=== PATIENT | female | born 1985 | race Caucasian/White ===

== ENCOUNTER 2016-06-12 16:59 | Inpatient (IN) | payer OTHER ==
[~2016-06-12 16:59] MED LIST: GLUCOPHAGE500 M3 PO; MINASTRIN 24 F1 EAC1 PO; NATURE THROI PO; PRENATAL VITAM1 EAC8 PO; PROBIOTIC1 EA10 PO; PROGESTERONE200 MG PO; VITAMIN C1000 M1 PO; VITAMIN D35000 UNI3 PO; ZYRTEC10 M4 PO
[2016-06-12 18:18] LABS: BASO % 0.1 % (0-2); EOS % 3.2 % (0-7); EOSINOPHIL ABSOLUTE COUNT 0.3 tho/cmm (0.0-0.7); HCT-HEMATOCRIT 33.7 % (34.0-49.0); HGB-HEMOGLOBIN 11.2 gm/dl (12.0-15.5); IMMATURE GRANULOCYTES ABSOLUTE 0.05 tho/cmm (0-0.03); IMMATURE GRANULOCYTES PERCENT 0.6 % (0-0.3); LYMPH % 16.2 % (20-45); LYMPH ABSOLUTE COUNT 1.4 tho/cmm (0.8-4.5); MCH (MEAN CORPUSCULAR HGB) 30.9 pg (28.0-32.0); MCHC MEAN CORPUSCULAR HGB CONC 33.2 % (32.0-36.0); MCV (MEAN CELL VOLUME) 92.8 fl (82.0-96.0); MEAN PLATELET VOLUME 9.6 cmc (9.4-12.4); MONO % 7.9 % (0-12); MONOCYTE ABSOLUTE COUNT 0.7 tho/cmm (0.0-1.2); NEUTROPHIL ABSOLUTE COUNT 6.2 tho/cmm (1.6-8.0); NEUTROPHIL-AUTOMATED 6.2 tho/cmm (1.6-8.0); PLATELET COUNT 218 tho/cmm (150-450); RED BLOOD COUNT 3.63 mil/cmm (4.00-5.20); RED CELL DISTRIBUTION WIDTH 12.8 % (12.4-16.4); WHITE BLOOD COUNT 8.6 tho/cmm (4.0-10.0)
[2016-06-12 18:38] LABS: ALB/GLOB RATIO 0.5 (0.8-2.0); ALBUMIN 2.2 g/dl (3.5-5.0); ALKALINE PHOSPHATASE 104 U/L (33-138); ALT/SGPT 20 U/L (12-78); BLOOD UREA NITROGEN 10 mg/dl (6-24); CALCIUM 8.2 mg/dl (8.5-10.5); CARBON DIOXIDE-VENOUS 24 mmol/L (22-32); CHLORIDE 107 mmol/l (96-110); CREATININE 0.57 mg/dl (0.50-1.10); GLUCOSE 111 mg/dL (70-110); SODIUM 141 mmol/L (135-145); eGFR VALUE FOR BLACK >90 mL/Min
[2016-06-12 18:45] LABS: ANION GAP 14 mmol/L (0-20); AST/SGOT 24 U/L (10-40); BILIRUBIN,TOTAL <0.1 mg/dl (0-1.5); POTASSIUM 3.9 mmol/L (3.7-5.1)
[2016-06-12] MEDS ORDERED: CLARITIN10 M6 (18:56)
--- NOTE | 2016-06-13 07:06 | NUR ---
DR. BHAKTA NOTIFIED OF CONSULT. NOTIFIED OF ADMISSION BP, LAB WORK WNL, 24 URINE IN PROGRESS, 3+ PITTING EDEMA. SHE STATES SHE WILL BE IN MID-MORNING.
[2016-06-13 19:03] LABS: URINE CREATININE MG/DAY 1450 mg/day (720-1510)
--- NOTE | 2016-06-14 20:20 | NUR ---
DR ALY CALLED AND NOTIFIED OF PTS BLOOD PRESSURE. NEW ORDERS RECEIVED. MD INSTRUCTS TO RECHECK BLOOD PRESSURE 15 MINTUES AFTER MEDICATION GIVEN AND TO CALL HER BACK IF BLOOD PRESSURES REMAIN OVER 160'S/110'S.
--- NOTE | 2016-06-14 22:40 | NUR ---
PT REPORTS NOT FEELING WELL, NAUSEATED AND HAD 1 LOOSE STOOL, HER CHEEKS ARE FLUSHED. REPORTS UNSURE IF FOOD EARLIER IN THE DAY HAD LACTOSE IN IT DUE TO HER BEING LACTOSE INTOLERANT. PT REQUESTS ZOFRAN AND PEPCID ALSO GIVEN. INSTRUCTED TO CALL IS FURTHER NEEDS
--- NOTE | 2016-06-15 04:35 | NUR ---
PT STATES SHE IS STARTING TO FEEL NAUSEATED AGAIN. RN OFFERS ZOFRAN IV. PT STATES SHE WILL WAIT AND SEE HOW SHE FEELS.
--- NOTE | 2016-06-15 05:00 | NUR ---
PT CALLS OUT. RN TO ROOM. PT REQUESTS MORE ZOFRAN FOR HER NAUSEA. PT STATES IT HAS GOTTEN INCREASINGLY WORSE. RN TO GIVE IV ZOFRAN 4 MG
[2016-06-15 05:02] LABS: BASO % 0.2 % (0-2); EOS % 0.3 % (0-7); HCT-HEMATOCRIT 31.6 % (34.0-49.0); HGB-HEMOGLOBIN 10.4 gm/dl (12.0-15.5); IMMATURE GRANULOCYTES ABSOLUTE 0.24 tho/cmm (0-0.03); IMMATURE GRANULOCYTES PERCENT 1.7 % (0-0.3); LYMPH ABSOLUTE COUNT 1.8 tho/cmm (0.8-4.5); MCH (MEAN CORPUSCULAR HGB) 31.2 pg (28.0-32.0); MCHC MEAN CORPUSCULAR HGB CONC 32.9 % (32.0-36.0); MCV (MEAN CELL VOLUME) 94.9 fl (82.0-96.0); MEAN PLATELET VOLUME 9.7 cmc (9.4-12.4); MONO % 10.4 % (0-12); MONOCYTE ABSOLUTE COUNT 1.4 tho/cmm (0.0-1.2); NEUTROPHIL ABSOLUTE COUNT 10.3 tho/cmm (1.6-8.0); NEUTROPHIL-AUTOMATED 10.3 tho/cmm (1.6-8.0); NEUTROPHILS % 74.4 % (40-80); PLATELET COUNT 242 tho/cmm (150-450); RED BLOOD COUNT 3.33 mil/cmm (4.00-5.20); RED CELL DISTRIBUTION WIDTH 13.4 % (12.4-16.4)
[2016-06-15 05:08] LABS: ALT/SGPT 18 U/L (12-78); AST/SGOT 18 U/L (10-40); eGFR VALUE FOR BLACK >90 mL/Min
[2016-06-15 05:12] LABS: WHITE BLOOD COUNT 13.8 tho/cmm (4.0-10.0)
--- NOTE | 2016-06-15 06:25 | NUR ---
REPORT GIVEN TO OLGA LIDIA AGARWAL.
--- NOTE | 2016-06-15 22:23 | NUR ---
REPORT FROM MAGED AGARWAL.
[2016-06-17 16:03] LABS: BASO % 0.2 % (0-2); EOS % 2.2 % (0-7); EOSINOPHIL ABSOLUTE COUNT 0.3 tho/cmm (0.0-0.7); HCT-HEMATOCRIT 32.7 % (34.0-49.0); HGB-HEMOGLOBIN 11.1 gm/dl (12.0-15.5); IMMATURE GRANULOCYTES ABSOLUTE 0.14 tho/cmm (0-0.03); IMMATURE GRANULOCYTES PERCENT 1.2 % (0-0.3); LYMPH % 15.3 % (20-45); LYMPH ABSOLUTE COUNT 1.8 tho/cmm (0.8-4.5); MCH (MEAN CORPUSCULAR HGB) 31.9 pg (28.0-32.0); MCHC MEAN CORPUSCULAR HGB CONC 33.9 % (32.0-36.0); MEAN PLATELET VOLUME 9.7 cmc (9.4-12.4); MONO % 9.1 % (0-12); MONOCYTE ABSOLUTE COUNT 1.1 tho/cmm (0.0-1.2); NEUTROPHIL ABSOLUTE COUNT 8.3 tho/cmm (1.6-8.0); NEUTROPHIL-AUTOMATED 8.3 tho/cmm (1.6-8.0); PLATELET COUNT 223 tho/cmm (150-450); RED BLOOD COUNT 3.48 mil/cmm (4.00-5.20); RED CELL DISTRIBUTION WIDTH 13.2 % (12.4-16.4); WHITE BLOOD COUNT 11.6 tho/cmm (4.0-10.0)
[2016-06-17 19:38] LABS: CORD BLOOD PH ARTERIAL 7.33 Units (7.18-7.38)
[2016-06-18 06:38] LABS: ALT/SGPT 17 U/L (12-78); AST/SGOT 28 U/L (10-40); eGFR VALUE FOR BLACK >90 mL/Min
[2016-06-18 06:41] LABS: BASO % 0.1 % (0-2); EOS % 0.6 % (0-7); EOSINOPHIL ABSOLUTE COUNT 0.1 tho/cmm (0.0-0.7); HGB-HEMOGLOBIN 9.3 gm/dl (12.0-15.5); IMMATURE GRANULOCYTES ABSOLUTE 0.12 tho/cmm (0-0.03); IMMATURE GRANULOCYTES PERCENT 0.5 % (0-0.3); LYMPH % 6.8 % (20-45); LYMPH ABSOLUTE COUNT 1.5 tho/cmm (0.8-4.5); MCHC MEAN CORPUSCULAR HGB CONC 33.2 % (32.0-36.0); MCV (MEAN CELL VOLUME) 93.3 fl (82.0-96.0); MEAN PLATELET VOLUME 9.6 cmc (9.4-12.4); MONO % 7.2 % (0-12); MONOCYTE ABSOLUTE COUNT 1.6 tho/cmm (0.0-1.2); NEUTROPHIL ABSOLUTE COUNT 18.7 tho/cmm (1.6-8.0); NEUTROPHIL-AUTOMATED 18.7 tho/cmm (1.6-8.0); NEUTROPHILS % 84.8 % (40-80); PLATELET COUNT 250 tho/cmm (150-450); RED CELL DISTRIBUTION WIDTH 13.3 % (12.4-16.4)
--- NOTE | 2016-06-18 08:00 | NUR ---
SCD ON BILATERAL
--- NOTE | 2016-06-18 08:45 | NUR ---
DR GONZALEZ HERE, LABS AND VS, AND ASSESSMENTS REVIEWED
--- NOTE | 2016-06-18 10:00 | NUR ---
COUGH DEEP BREATH
--- NOTE | 2016-06-18 19:58 | NUR ---
DR MARBELLA SPENCER CALLED REGUARDING POSSIBLE SPINAL CRISTINA, MADE AWARE OF PT SYMPTOMS OF HORRIBLE CRISTINA AND STIFF NECK,MADE AWARE THAT PT HAS HAD FLUIDS ALL DAY AND ALSO THAT SHE HAS HAD SOME CAFFIENE, HAD TAKEN SOME DEMEROL THROUGH OUT THE DAY AND THAT HAS ONLY HELPED FOR A VERY SHORT PERIOD OF TIME. JOHANNA REPORTS THAT HE CAN HAVE DAY SHIFT COME AND SEE HER IN THE AM, NURSE REQUESTS THAT SOMEONE COME AND SEE PT TONIGHT, JOHANNA STATES HE WILL TRY TO BUT IT WOULD NOT BE UNTIL 2300 OR MIDNIGHT. NURSE INFORMS JOHANNA THAT HE CAN COME SEE HER THEN.
--- NOTE | 2016-06-18 20:10 | NUR ---
DR GONZALEZ CALLS IN FOR UPDATE, MADE AWARE OF PT S/S,VITALS AND I/O. RN TAKES BP FOR MD 146/87, ORDERS RECIEVED, INSTRUCTED NURSE TO CALL HIM BACK IF MEDICATIONS DO NOT WORK
--- NOTE | 2016-06-18 21:00 | NUR ---
PT REPORTS SHE IS STARTING TO FEEL AL LITTLE BIT BETTER, SINCE RECIEVING THE FIORICET,PT REPORT SHE THINK SHE MAY HAVE A MIGRAINE.
--- NOTE | 2016-06-18 21:30 | NUR ---
DR TYSON ROUNDS ON PT,MADE AWARE THAT PT THINKS SHE MAY HAVE A MIGRAINE
[2016-06-19 06:24] LABS: BASO % 0.1 % (0-2); EOSINOPHIL ABSOLUTE COUNT 0.3 tho/cmm (0.0-0.7); HCT-HEMATOCRIT 25.8 % (34.0-49.0); HGB-HEMOGLOBIN 8.6 gm/dl (12.0-15.5); IMMATURE GRANULOCYTES PERCENT 0.7 % (0-0.3); LYMPH % 8.2 % (20-45); LYMPH ABSOLUTE COUNT 2.2 tho/cmm (0.8-4.5); MCH (MEAN CORPUSCULAR HGB) 31.2 pg (28.0-32.0); MCHC MEAN CORPUSCULAR HGB CONC 33.3 % (32.0-36.0); MCV (MEAN CELL VOLUME) 93.5 fl (82.0-96.0); MEAN PLATELET VOLUME 8.6 cmc (9.4-12.4); MONO % 5.6 % (0-12); MONOCYTE ABSOLUTE COUNT 1.5 tho/cmm (0.0-1.2); NEUTROPHIL ABSOLUTE COUNT 22.7 tho/cmm (1.6-8.0); NEUTROPHIL-AUTOMATED 22.7 tho/cmm (1.6-8.0); NEUTROPHILS % 84.4 % (40-80); PLATELET COUNT 248 tho/cmm (150-450); RED BLOOD COUNT 2.76 mil/cmm (4.00-5.20)
[2016-06-19 06:34] LABS: ALB/GLOB RATIO 0.5 (0.8-2.0); ALBUMIN 1.9 g/dl (3.5-5.0); ALKALINE PHOSPHATASE 90 U/L (33-138); ALT/SGPT 17 U/L (12-78); ANION GAP 10 mmol/L (0-20); AST/SGOT 20 U/L (10-40); BILIRUBIN,TOTAL 0.3 mg/dl (0-1.5); BLOOD UREA NITROGEN 10 mg/dl (6-24); CALCIUM 7.2 mg/dl (8.5-10.5); CARBON DIOXIDE-VENOUS 29 mmol/L (22-32); CHLORIDE 94 mmol/l (96-110); CREATININE 0.51 mg/dl (0.50-1.10); GLUCOSE 108 mg/dL (70-110); POTASSIUM 4.3 mmol/L (3.7-5.1); SODIUM 129 mmol/L (135-145); eGFR VALUE FOR BLACK >90 mL/Min
[2016-06-21] MEDS ORDERED: PROCARDIA XL60 M1 PO (11:12)
[2016-06-21] MEDS ORDERED: IBUPROFEN800 M1 PO (11:13)
[2016-06-21] MEDS ORDERED: PERCOCET 5-3251 EACH PO (11:15)
== END 2016-06-21 15:55 | DRG 766 ==
LOC: OBGD 16:59 → LDR 06-17 18:55 → OBGD 06-19 00:28
PROVIDERS: Obstetrics & Gynecology Maternal & Fetal Medicine; ADMIT Obstetrics & Gynecology
DX: O14.14 Severe pre-eclampsia complicating childbirth (principal); O69.1XX0 Labor and delivery complicated by cord around neck, with compression, not applicable or unspecified; Z3A.33 33 weeks gestation of pregnancy; Z37.0 Single live birth
CPT/HCPCS: J0690; J0702; J2175; J2270; J2405; J2590; J3475